=== PATIENT | female | born 1965 | race Caucasian/White ===

== ENCOUNTER 2018-04-05 20:26 | Emergency (ER) | payer SELFPAY ==
[2018-04-05 20:27] VITALS: BP 117/97; PULSE 79; RESP 21; TEMP 36.6; O2SAT 100; BMI 27.4
--- NOTE | 2018-04-05 20:31 | EKG12_ITS ---
Test Reason : CP Blood Pressure : / mmHG Vent. Rate : 074 BPM Atrial Rate : 074 BPM P-R Int : 142 ms QRS Dur : 092 ms QT Int : 398 ms P-R-T Axes : 019 034 000 degrees QTc Int : 441 ms Normal sinus rhythm Nonspecific T wave abnormality Abnormal ECG Confirmed by MOSES WOODS, GAIL ([id number]), metropolitan editor FABRIZIO SANTIAGO ([id number]) on 04/07/2018 3:54:00 PM Referred By: DIPTI Confirmed By:GAIL LOPES MD
[2018-04-05 20:57] LABS: Absolute Lymphocyte Count 0.76 X10^3/ul (0.83-4.51); Absolute Neutrophil Count 5.7 X10^3/uL (2.0-7.7); Basophil# 0.01 X10^3/uL; Basophil% 0.1 % (0-1); Eosinophil# 0.02 X10^3/uL; Eosinophils% 0.3 % (0-5); Hematocrit 47.3 % (37-47); Hemoglobin 15.7 g/dl (12.0-15.0); Lymphocyte # 0.76 X10^3/ul (4.0); Lymphocyte % 11.3 % (19-41); Mean Corp Hgb Conc 33.2 g/gl (32-36); Mean Corpuscular Volume 90.4 fL (81-99); Mean Platelet Vol. 10.6 fl (6.2-12.0); Monocyte# 0.26 X10^3/uL; Monocyte% 3.9 % (0-10); Neutrophil # 5.66 X10^3/uL (2.7-7.7); Neutrophil % 84.3 % (47-70); Platelet Count 229 K/mm3 (150-450); RBC Distribution Width CV 12.7 % (11.6-14.6); RBC Distribution Width SD 41.8 fl (35.1-43.9); Red Blood Count 5.23 M/mm3 (4.2-5.4); White Blood Count 6.7 K/mm3 (4.4-11.0)
[2018-04-05 20:58] LABS: POSITIVE COUNT NO; POSITIVE DIFFERENTIAL NO; POSITIVE MORPHOLOGY NO
--- NOTE | 2018-04-05 21:00 | RAD_ITS ---
STUDY: X-RAY CHEST REASON FOR EXAM: Female, 53 years old. Chest pain TECHNIQUE: Single AP portable view of the chest. COMPARISON: None. FINDINGS: There is right lower lung increased opacity. There is no demonstrated pleural abnormality. Normal size heart. Normal mediastinum and carolyn. Normal visualized pulmonary arteries. Normal visualized aortic arch and descending thoracic aorta. Normal visualized thoracic spine. Normal visualized ribs, clavicles, and shoulders. There is no demonstrated abnormality of the visualized soft tissue structures of the upper abdomen. RAD/Chest 1 View (Portable) IMPRESSION: Right lower lung infiltrate. Electronically Signed: Theodore Askew MD at 21:17 EST , Service support ,
[2018-04-05 21:02] LABS: International Normalized Ratio 0.9; Prothrombin Time (Protime)PT. 12.1 SECONDS (11.7-14.9)
[2018-04-05 21:09] LABS: Anion Gap 10 (5-15); BUN 16 mg/dL (7-18); BUN/Creat Ratio 15.2 RATIO (10-20); Calcium,Total 9.1 mg/dL (8.5-10.1); Chloride 104 mmol/L (98-107); Creatinine, Serum 1.05 mg/dL (0.55-1.02); EST Glomerular Filtration Rate 59 mL/min (>60); Est Glom Filt Rate - Afr Amer 71 mL/min (>60); Estimated Creatinine Clearance 50.13 ml/min; Glucose 106 mg/dL (74-106); Potassium 3.6 mmol/L (3.5-5.1); Sodium Level 136 mmol/L (136-145)
[2018-04-05 21:26] VITALS: BP 118/90; PULSE 64; RESP 13; O2SAT 100
[2018-04-05] MEDS: Mag Hydrox/Al Hydrox/Simeth 30 ML UDC PO (21:47)
[2018-04-05] MEDS: 0.9% Normal Saline 1,000 ML 999 ML IV (22:06)
[2018-04-05] MEDS: Ondansetron 4 MG/2 ML Vial IV (22:06)
[2018-04-05 22:08] VITALS: BP 122/84; PULSE 62; RESP 16; O2SAT 98
[2018-04-05] MEDS: Dicyclomine 10 MG Capsule 20 MG PO (23:14)
--- NOTE | 2018-04-06 00:21 | ED.DCSUM_ITS ---
- ER Visit Summary Date of Service: 04/06/18 Chief Complaint: Chest pressure, tightness bloating sensation with diaphoresis, shortness of breath and radiation of pain to the scapula History of Present Illness: The patient is a 53 F who apparently had [place] food according to the 2 hours prior to the onset of her symptoms. She states she also has had panic attacks and concerned this was a panic attack and took Ativan. Since there was no improvement after 2030 minutes she decided to come to the emergency department. She did have 2 loose stools prior to arrival. She has had diarrhea during her stay in the emergency department. She denies fever, chills night sweats. Denies visual, ocular auditory symptoms. She denies cough, dyspnea on exertion, orthopnea or PND. She denies black or maroon stool. She denies hematemesis. She has no urologic symptoms. She denies skin lesions. She complains of generalized weakness. Patient did report perioral numbness, tingling in upper and lower extremities when she experienced the chest discomfort with diaphoresis and shortness of breath. She does report history of anxiety and took Ativan as aforementioned. came out after examination states she appears to be chilling. Physical Examination: Vital signs noted and unremarkable. She appears slightly pale. Head is atraumatic normocephalic. Pupils are equal round reactive. Extraocular muscles are intact. TMs are pearly white with landmarks noted. Nares patent with no drainage. Posterior pharynx without erythema or exudate. Uvula is midline. There is no dysphonia or dysphasia. Trachea is midline. There is no stridor with auscultation of the neck. Heart is regular without murmur, gallop or rub. S1 and S2 are normal. Lungs are clear to auscultation with good movement of air bilaterally. There is no reproducible chest pain. There is significant pain in the epigastric area. Negative Javier sign. She is status post cholecystectomy, appendectomy and hysterectomy. She has increased bowel sounds. There are no lesions or rash noted. Is no evidence of trauma. She is alert and oriented with a nonfocal neurologic exam. Test Results: CBC is unremarkable. H&H of 15.7 and 47.3. Basic metabolic panel is unremarkable. Creatinine is slightly elevated 1.05. Troponin #1 troponin #2 are both normal with a delta of 0. EKG normal sinus rhythm with artifact and there are no old ossific changes. OR interval, QRS duration and QT interval and axis are normal. Emergency Department Course and Treatment: Patient was given a GI cocktail because of epigastric pain. Because of the cramping pain and diarrhea she was treated with 20 minutes of Bentyl. I was informed at 0020 that she had return of her nausea. 5 mg of Reglan was ordered. Treatment Plan: Patient's GI mid chest pain and a likely is related to her nausea vomiting diarrhea. This may be secondary to the food she ate. Patient was reassessed at 0026. She reports feeling better. Since pharmacies are closed will dispense Bentyl to go home with and Zofran. Disposition: Discharged home in stable improved condition Impression: 1. Chest pain noncardiac etiology 2. Abdominal pain with nausea and diarrhea 3. Anxiety reaction with hyperventilation This note was generated with [employer] dictation software. It may contain incorrect words, spelling, and punctuation that were not noted in review of the chart prior to signing ED Disposition - Plan for ED Patient: Disposition: Home or Assisted Living Instructions: ED Chest Pain Noncardiac Ch, ED Vomiting Diarrhea Nonspecific Ad Referrals: Estevan Geller III, MD [Primary Care Provider] - 1-2 Days if not improving
[2018-04-06] MEDS: Metoclopramide 10 MG/2 ML Vial 5 MG IV (00:39)
[2018-04-06] MEDS: Dicyclomine 10 MG Capsule PO (00:39)
[2018-04-06] MEDS: Ondansetron ODT 4 MG Tablet PO (00:40)
[2018-04-06 00:43] VITALS: BP 114/67; PULSE 71; RESP 16; O2SAT 97
== END 2018-04-06 00:46 | disposition home or self-care (01) ==
PROVIDERS: Emergency Provider Emergency Medicine; Family Provider Family Medicine; PCP Family Medicine
DX: R07.9 Chest pain, unspecified (principal); R10.13 Epigastric pain; R11.0 Nausea; R19.7 Diarrhea, unspecified; F41.1 Generalized anxiety disorder; R06.4 Hyperventilation; Z79.899 Other long term (current) drug therapy; E66.9 Obesity, unspecified
CPT/HCPCS: 71045; 80048; 84484; 85025; 85610; 93005; 96361; 96374; 96375; 99284; J7030; A4216; J2405

== ENCOUNTER 2020-02-13 19:34 | Emergency (ER) | payer SELFPAY ==
[2020-02-13 19:34] VITALS: BP 149/98; PULSE 58; RESP 16; TEMP 36.8; O2SAT 97; BMI 38.4
--- NOTE | 2020-02-13 19:43 | ED.RN ---
rn called for ekg, pulled old ekgs for
--- NOTE | 2020-02-13 20:08 | EKG12_ITS ---
Test Reason : CP Blood Pressure : / mmHG Vent. Rate : 054 BPM Atrial Rate : 054 BPM P-R Int : 158 ms QRS Dur : 104 ms QT Int : 446 ms P-R-T Axes : 017 -18 054 degrees QTc Int : 422 ms Sinus bradycardia Left ventricular hypertrophy with repolarization abnormality Abnormal ECG Confirmed by GEORGINA WOODS, CHRIS ([id number]), editorial cartoonist KEVIN ANGLIN ([id number]) on 02/16/2020 8:31:39 AM Referred By: SHARON Confirmed By:CHRIS ERICKSON MD
--- NOTE | 2020-02-13 20:09 | RAD_ITS ---
STUDY: X-RAY CHEST REASON FOR EXAM: Female, 55 years old. CHEST and HEAVINESS and LEFT ARM PAIN RADIATING TO BACK. TECHNIQUE: Single frontal view of the chest. COMPARISON: 04/05/2018. FINDINGS: There is no new focal consolidation. Normal size heart. Normal mediastinum and carolyn. Normal visualized pulmonary arteries. Normal visualized aortic arch and descending thoracic aorta. Normal visualized thoracic spine. Normal visualized ribs, clavicles, and shoulders. There is no demonstrated abnormality of the visualized soft tissue structures of the upper abdomen. RAD/Chest 1 View (Portable) IMPRESSION: No acute cardiopulmonary process. Electronically Signed: Alisa Mckeon MD at 20:59 EST Tel , Service support ,
[2020-02-13 20:25] VITALS: BP 125/96; PULSE 59
[2020-02-13] MEDS: Nitroglycerin SL (ED/IMG/CATH) 0.4 MG TABLET SUBLINGUAL (20:25)
[2020-02-13 20:33] LABS: Absolute Neutrophil Count 3.9 X10^3/uL (2.0-7.7); Basophil# 0.04 X10^3/uL; Basophil% 0.7 % (0-1); Eosinophil# 0.09 X10^3/uL; Eosinophils% 1.5 % (0-5); Hematocrit 42.2 % (37-47); Hemoglobin 13.8 g/dL (12.0-15.0); Lymphocyte % 29.4 % (19-41); Mean Corp Hgb Conc 32.7 g/dL (32-36); Mean Corpuscular Hgb 29.2 pg (27.0-32.0); Mean Corpuscular Volume 89.4 fL (81-99); Mean Platelet Vol. 10.9 fl (6.2-12.0); Monocyte% 4.9 % (0-10); NRBC Flagged by Analyzer 0 % (0-5); Neutrophil # 3.88 X10^3/uL (2.7-7.7); Neutrophil % 63.2 % (47-70); Platelet Count 244 K/mm3 (150-450); RBC Distribution Width SD 39.5 fl (35.1-43.9); Red Blood Count 4.72 M/mm3 (4.2-5.4); White Blood Count 6.1 K/mm3 (4.4-11.0)
[2020-02-13 20:40] LABS: D-Dimer Quantitative (DVT/PE) 0.37 FEU/ug/m (0.27-0.49)
[2020-02-13 20:48] LABS: Anion Gap 7 (5-15); BUN 15 mg/dL (7-18); BUN/Creat Ratio 13.9 RATIO (10-20); Calcium,Total 8.9 mg/dL (8.5-10.1); Chloride 108 mmol/L (98-107); Creatinine, Serum 1.08 mg/dL (0.55-1.02); EST Glomerular Filtration Rate 56 mL/min (>60); Est Glom Filt Rate - Afr Amer 68 mL/min (>60); Estimated Creatinine Clearance 47.65 ml/min; Glucose 151 mg/dL (74-106); Potassium 3.5 mmol/L (3.5-5.1); Sodium Level 142 mmol/L (136-145)
--- NOTE | 2020-02-13 21:07 | ED.DCSUM_ITS ---
History of Present Illness Chief Complaint: Chest Pain Informant: Patient Narrative: Very pleasant 55-year-old female presents for evaluation of chest pain. At approximately 5:00 [employer] she began to have pain going up her left arm into the left scapular region. She then felt a sensation like a 6-year-old was sitting on her chest. She states that the arm is better but the heaviness still remains. She states she had a stress test in the past that was probably greater than 10 years ago. Non-smoker. No history of hypertension high cholesterol. BMI is 38. History of known vascular disease. Past Medical History - Allergies and Home Meds Allergies/Adverse Reactions: Allergies azithromycin [From Zithromax] Allergy (Verified 02/13/20 19:36) Unknown meperidine HCl [From Demerol] Allergy (Verified 02/13/20 19:36) Unknown prochlorperazine edisylate [From Compazine] Allergy (Verified 02/13/20 19:36) Unknown prochlorperazine maleate [From Compazine] Allergy (Verified 02/13/20 19:36) Unknown rizatriptan benzoate [From Maxalt] Allergy (Verified 02/13/20 19:36) Unknown Primary Care Physician: Estevan Geller III, MD [Primary Care Provider] - As soon as possible (please discuss cardiac stress testing with your doctor) Past Medical History: None Surgical History: noncontributory Lives: Spouse/ Significant Other Smoking Status: Never smoker Drugs: None Review of Systems General: Denies: Chills, Fever, Sweats Eyes: Denies: Visual changes - bilaterally, Diplopia ENT: Denies: Rhinorrhea, Sore throat Cardiovascular: Reports: Chest pain. Denies: Palpitations Respiratory: Denies: Dyspnea, Cough, Dyspnea on exertion Gastrointestinal: Denies: Abdominal pain, Nausea, Vomiting, Diarrhea, Melena, Hematochezia Genitourinary: Denies: Dysuria, Hematuria, Frequency Musculoskeletal: Reports: Extremity Pain. Denies: Back pain Skin: Denies: Rash, Wounds Neurological: Denies: Headache, Weakness, Numbness Physical Exam Vital Signs/Narrative: Vital Signs Temp Pulse Resp BP Pulse Ox 02/13/20 20:25 59 L 125/96 H 02/13/20 19:34 98.2 F 58 L 16 149/98 H 97 Inital Vital Signs reviewed: Yes General: Well nourished, Well developed, No Acute Distress Head: Normocephalic, Atraumatic Eyes: Perrl, EOMI ENT: Moist mucous membranes, No rhinorrhea Neck: Supple, Nontender Cardiovascular: Regular rate, Regular rhythm, No murmurs Respiratory: No distress, CTA bilaterally, Chest nontender Abdomen: Soft, Nontender, Nondistended, Normal bowel sounds Back: Nontender, Normal Inspection Extremities: Nontender, No edema Skin: Normal color, No rash Neurological: Alert, Oriented x3, Cranial nerves II-XII grossly intact, Normal Strength, Normal Sensation Psychological: Normal affect, Normal Mood Diagnostic/Tx/Re-eval Clinical Impression(s) from Imaging Studies Chest X-Ray 02/13/20 20:09 IMPRESSION: No acute cardiopulmonary process. Electronically Signed: Alisa Mckeon MD at 20:59 EST Tel , Service support , Laboratory Last Values WBC 6.1 K/mm3 (4.4-11.0) 02/13/20 19:47 RBC 4.72 M/mm3 (4.2-5.4) 02/13/20 19:47 Hgb 13.8 g/dL (12.0-15.0) 02/13/20 19:47 Hct 42.2 % (37-47) 02/13/20 19:47 MCV 89.4 fL (81-99) 02/13/20 19:47 MCH 29.2 pg (27.0-32.0) 02/13/20 19:47 MCHC 32.7 g/dL (32-36) 02/13/20 19:47 RDW Std Deviation 39.5 fl (35.1-43.9) 02/13/20 19:47 RDW Coeff of Scooter 12.0 % (11.6-14.6) 02/13/20 19:47 Plt Count 244 K/mm3 (150-450) 02/13/20 19:47 MPV 10.9 fl (6.2-12.0) 02/13/20 19:47 Immature Gran % (Auto) 0.300 % (0.0-0.9) 02/13/20 19:47 Neut % (Auto) 63.2 % (47-70) 02/13/20 19:47 Lymph % (Auto) 29.4 % (19-41) 02/13/20 19:47 [place] % (Auto) 4.9 % (0-10) 02/13/20 19:47 Eos % (Auto) 1.5 % (0-5) 02/13/20 19:47 Baso % (Auto) 0.7 % (0-1) 02/13/20 19:47 Absolute Neuts (auto) 3.9 X10^3/uL (2.0-7.7) 02/13/20 19:47 Absolute Lymphs (auto) 1.80 X10^3/uL (0.83-4.51) 02/13/20 19:47 Nucleated RBC % 0 % (0-5) 02/13/20 19:47 D-Dimer Quant (PE/DVT) 0.37 FEU/ug/m (0.27-0.49) 02/13/20 19:47 Sodium 142 mmol/L (136-145) 02/13/20 19:47 Potassium 3.5 mmol/L (3.5-5.1) 02/13/20 19:47 Chloride 108 mmol/L (98-107) H 02/13/20 19:47 Carbon Dioxide 27.0 mmol/L (21.0-32.0) 02/13/20 19:47 Anion Gap 7 (5-15) 02/13/20 19:47 BUN 15 mg/dL (7-18) 02/13/20 19:47 Creatinine 1.08 mg/dL (0.55-1.02) H 02/13/20 19:47 Estim Creat Clear Calc 47.65 ml/min 02/13/20 19:47 Est GFR (MDRD) Af Amer 68 mL/min (>60) 02/13/20 19:47 Est GFR (MDRD) Non-Af 56 mL/min (>60) L 02/13/20 19:47 BUN/Creatinine Ratio 13.9 RATIO (10-20) 02/13/20 19:47 Glucose 151 mg/dL (74-106) H 02/13/20 19:47 Calcium 8.9 mg/dL (8.5-10.1) 02/13/20 19:47 Troponin I < 0.015 ng/mL (<0.045) 02/13/20 19:47 - EKG Initial EKG Interpretation: Sinus Rhythm - EKG demonstrates a sinus bradycardia at a rate of 54. This appears grossly unchanged from EKG dated 14 April 2006 - Medical Decision Making Based on her heart score (3 points) the patient is low risk. Initial troponin is negative. Patient does not wish to stay for second troponin. She is otherwise asymptomatic at the current time. Patient will be discharged home with instructions to follow-up with her primary care physician to discuss further cardiac stress testing. ED Disposition - Plan for ED Patient: Disposition: Home or Assisted Living Diagnosis: Chest pain Instructions: ED Chest Pain, Uncertain Cause Referrals: Estevan Geller III, MD [Primary Care Provider] - As soon as possible (please discuss cardiac stress testing with your doctor) Additional Instructions: Please return if any concerns or worsening
[2020-02-13 21:19] VITALS: BP 112/65; PULSE 61; RESP 16; O2SAT 98
== END 2020-02-13 21:19 | disposition home or self-care (01) ==
PROVIDERS: Emergency Provider Emergency Medicine; PCP Family Medicine
DX: R07.9 Chest pain, unspecified (principal)
CPT/HCPCS: 71045; 80048; 84484; 85025; 85379; 93005; 99284; A4216

== ENCOUNTER 2020-10-11 06:29 | Day surgery (SDC) | payer SELFPAY ==
--- NOTE | 2020-10-11 06:36 | HP.PCM_ITS ---
HPI - General HPI Narrative SAMANTHA BEAVERS, is a 55 F who presents for colonoscopy. Patient says that her last colonoscopy was 10 years ago. She denies any abdominal pain or blood in her stool. She says she does have a half brother who had colon cancer in his 40s. [facility] Medical History (Updated 10/11/20 @ 06:[address] Aaron Arnold MD) Alcohol use Anxiety Back pain Depression Former smoker History of IBS History of rheumatic fever History of stress test Injury of head and neck Leg cramps Wears glasses Home Medications citalopram 20 mg PO DAILY 03/27/13 [History Last Taken 01/11/17] phentermine 37.5 mg PO DAILY 10/04/20 [History Last Taken Unknown] Allergy/AdvReac Type Severity Reaction Status Date / Time azithromycin [From Zithromax] Allergy Unknown Verified 10/04/20 12:49 meperidine HCl [From Demerol] Allergy Unknown Verified 10/04/20 12:49 prochlorperazine edisylate Allergy Unknown Verified 10/04/20 12:49 [From Compazine] prochlorperazine maleate Allergy Unknown Verified 10/04/20 12:49 [From Compazine] rizatriptan benzoate Allergy Unknown Verified 10/04/20 12:49 [From Maxalt] Surgical History (Updated 10/04/20 @ 12:57 by Veronica Green) History of cardiac catheterization Hx laparoscopic cholecystectomy Hx of appendectomy Hx of colonoscopy Hx of hernia repair Hx of hysterectomy, total Hx of tonsillectomy Social History Smoking Status: Former smoker Past Medical/Surgical History Planned Operation Planned Operative Procedure/s: COLONOSCOPY Previous Hospitalizations/Surgeries HX Hospitalizations: No Any Problems With Anesthesia: No You/Your Family Experience Fever (Hyperthermia) With Anes: No Cholinesterase deficiency: No Cardiovascular Hx Heart Attack: No Hx Congestive Heart Failure: No Hx Hypertension: No Hx Internal Defibrillator: No Hx Pacemaker: No Hx Cardiac Catheterization: Yes (as a child) What facility was last heart cath performed: [facility] Date of last Heart Cath: unk Respiratory Hx Chronic Obstructive Pulmonary Disease (COPD): No Hx Asthma: Yes (FROM BLACK MOLD) Hx Emphysema: No Hx Sleep Apnea: No Hx Respiratory Tract Infection/Cold (presently): No Do You Snore Loudly (louder than talking or can be heard): No Do You Often Feel Tired/ Fatigued/ Sleepy Dring Daytime?: No Has Anyone Observed You Stop Breathing During Sleep?: No Result (for STOP score): Negative Smoking Status: Former smoker Gastrointestinal Special diet followed at home: Yes Neurological Hx Seizures: No Hx Transient Ischemic Attacks (TIA): No Hx Back Injury/Pain: No Does patient have nerve stimulator: No Blood Disorder Hx High Cholesterol: Yes Hx Hepatitis: No Hx Cirrhosis: No Endocrine Hx Diabetes: No Psycho/Social Hx Substance Use: No Hx Alcohol Use: No Hx Anxiety: Yes Hx Depression: No Hx Dementia: No Miscellaneous Hx Cancer: No Allergies azithromycin [From Zithromax] Allergy (Verified 10/04/20 12:49) Unknown meperidine HCl [From Demerol] Allergy (Verified 10/04/20 12:49) Unknown prochlorperazine edisylate [From Compazine] Allergy (Verified 10/04/20 12:49) Unknown prochlorperazine maleate [From Compazine] Allergy (Verified 10/04/20 12:49) Unknown rizatriptan benzoate [From Maxalt] Allergy (Verified 10/04/20 12:49) Unknown Discharge Is Pt Admitted From a Detention, or a [facility]: No After D/C, Where Do you Plan to Go: Return Home Vital Signs Vital Signs Vital Signs: Weight Body Mass Index (BMI) 38.4 Physical Exam Const alert and oriented x3 Resp normal respiratory effort and normal air movement Cardio regular rate and regular rhythm GI soft to palpation, non-tender and non-distended Assessment & Plan Assessment/Plan (1) Screen for colon cancer: PLAN: The patient is here for screening colonoscopy. She does have a half brother with a history of colon cancer in his 40s and I do recommend that she have a colonoscopy every 5 years. I explained endoscopy in detail to the patient. I explained the risks including but not limited to stroke or heart attack with anesthesia, perforation of the GI tract, bleeding, infection. I explained that any of these could necessitate further emergency surgery. The patient understands and all questions were answered sufficiently. The patient wishes to proceed with procedure. Aaron Arnold MD Pager: [facility] [address] [place] [address], [address] [place] [address] Office: Surgery Risks - Colonoscopy Risks Include but are not Limited To: Risks include but are not limited to: Bleeding, perforation requiring further surgery, inability to complete colonoscopy requiring barium enema.
[2020-10-11 06:51] VITALS: BP 114/83; PULSE 77; RESP 16; TEMP 36.4; O2SAT 100; BMI 31.4
[2020-10-11] MEDS: Lactated Ringers 1,000 ML 100 ML IV (07:11)
[2020-10-11 07:55] VITALS: BP 101/71; BP 114/83; PULSE 74; RESP 16; O2SAT 97
[2020-10-11 07:57] VITALS: BP 101/69; BP 114/83; PULSE 69; RESP 14; TEMP 36.4; O2SAT 100
--- NOTE | 2020-10-11 08:02 | OP.CCLET_ITS ---
10/11/2020 Rima Sierra [place] [id number] [place] [address] Re : Colonoscopy procedure for Miriam Sprague Dear Dr. Sierra This procedure was performed on Sunday, October 11, 2020. My impressions and recommendations are as follows: Impressions : - The entire examined colon is normal on direct and retroflexion views. - No specimens collected. Recommendations : - Discharge patient to home. - Resume previous diet. - Continue present medications. - Repeat colonoscopy in 5 years for surveillance. My findings are described in the full procedure note, which is enclosed. If I can be of further assistance, please feel free to contact me at Doctor phone number(s): , Work: . Sincerely, Aaron Arnold MD 10/11/2020 8:01:17 AM This report has been signed electronically.
--- NOTE | 2020-10-11 08:02 | OP.COLON_ITS ---
Patient Name: Miriam Sprague Procedure Date: 10/11/2020 7:03 AM Date of : 1965 Age: 55 Procedure: Colonoscopy Indications: Screening for colorectal malignant neoplasm Providers: Aaron Arnold MD Referring MD: Rima Sierra Medicines: Monitored Anesthesia Care Patient Profile: This is a 55 year old female. Refer to note in patient chart for documentation of history and physical. Last Colonoscopy: 10 years ago. Complications: No immediate complications. Procedure: Pre-Anesthesia Assessment: - Prior to the procedure, a History and Physical was performed, and patient medications and allergies were reviewed. The patient's tolerance of previous anesthesia was also reviewed. The risks and benefits of the procedure and the sedation options and risks were discussed with the patient. All questions were answered, and informed consent was obtained. Prior Anticoagulants: The patient has taken no previous anticoagulant or antiplatelet agents. After reviewing the risks and benefits, the patient was deemed in satisfactory condition to undergo the procedure. After I obtained informed consent, the scope was passed under direct vision. Throughout the procedure, the patient's blood pressure, pulse, and oxygen saturations were monitored continuously. The colonoscope was introduced through the anus and advanced to the cecum, identified by appendiceal orifice and ileocecal valve. The colonoscopy was performed without difficulty. The patient tolerated the procedure well. The quality of the bowel preparation was good. Scope In: 7:41:25 AM Scope Withdrawal Time 0 hours 6 minutes 2 seconds Scope Out: 7:52:03 AM Total Procedure Duration Time 0 hours 10 minutes 38 seconds Findings: The entire examined colon appeared normal on direct and retroflexion views. Impression: - The entire examined colon is normal on direct and retroflexion views. - No specimens collected. Recommendation: - Discharge patient to home. - Resume previous diet. - Continue present medications. - Repeat colonoscopy in 5 years for surveillance. Procedure Code(s): --- Professional --- 15594, Colonoscopy, flexible; diagnostic, including collection of specimen(s) by brushing or washing, when performed (separate procedure) Diagnosis Code(s): --- Professional --- Z12.11, Encounter for screening for malignant neoplasm of colon CPT copyright 2017 [employer]. All rights reserved. The codes documented in this report are preliminary and upon forestry patrolman review may be revised to meet current compliance requirements. Aaron Arnold MD 10/11/2020 8:01:17 AM This report has been signed electronically. Number of Addenda: 0 Note Initiated On: 10/11/2020 7:03 AM
[2020-10-11 08:05] VITALS: BP 105/80; BP 114/83; PULSE 75; RESP 16; O2SAT 98
[2020-10-11 08:11] VITALS: BP 104/76; BP 114/83; PULSE 78; RESP 16; TEMP 36.3; O2SAT 100
[2020-10-11 08:40] VITALS: BP 114/83
== END 2020-10-11 08:41 | disposition home or self-care (01) ==
LOC: EN 06:30 → AC 06:30
PROVIDERS: PCP Family Medicine; Referring Provider Family Medicine; Visit Provider Surgery
PROC: 0DJD8ZZ Inspection of Lower Intestinal Tract, Via Natural or Artificial Opening Endoscopic (ICD-10-PCS; CPT 45378; principal; 2020-10-11 07:25)
DX: Z12.11 Encounter for screening for malignant neoplasm of colon (principal); F41.9 Anxiety disorder, unspecified; F32.9 Major depressive disorder, single episode, unspecified; Z87.891 Personal history of nicotine dependence; Z79.899 Other long term (current) drug therapy
CPT/HCPCS: 45378; 87426; C9803; J7120; J2405

== ENCOUNTER → 2022-05-01 | Outpatient (CLI) | payer SELFPAY ==
[2022-05-01 18:08] LABS: CRP 2.91 mg/L (0.0-3.0)
[2022-05-01 19:49] LABS: Erythrocyte Sedimentation Rate 12 mm/hr (0-30)
[2022-05-04 12:01] LABS: CCP IgG Antibodies 1 units (0-19)
[2022-05-04 14:32] LABS: ANTINUCLEAR ANTIBODIES DIRECT Negative (Negative)
== END | disposition home or self-care (01) ==
LOC: BFHLAB 14:12
PROVIDERS: PCP Family Medicine; Visit Provider Family Medicine
DX: M25.50 Pain in unspecified joint (principal)
CPT/HCPCS: 36415; 85652; 86038; 86140; 86200

== ENCOUNTER → 2023-08-05 | Outpatient (CLI) | payer SELFPAY ==
[2023-08-05 12:35] LABS: Absolute Lymphocyte Count 2.02 X10^3/uL (0.83-4.51); Absolute Neutrophil Count 3.3 X10^3/uL (2.0-7.7); Basophil# 0.06 X10^3/uL; Eosinophil# 0.07 X10^3/uL; Eosinophils% 1.2 % (0-5); Hematocrit 43.9 % (37-47); Hemoglobin 13.8 g/dL (12.0-15.0); Lymphocyte # 2.02 X10^3/ul (0.83-4.51); Mean Corp Hgb Conc 31.4 g/dL (32-36); Mean Corpuscular Hgb 28.6 pg (27.0-32.0); Mean Corpuscular Volume 91.1 fL (81-99); Mean Platelet Vol. 11.3 fl (6.2-12.0); Monocyte# 0.31 X10^3/uL; Monocyte% 5.4 % (0-10); NRBC Flagged by Analyzer 0 % (0-5); Neutrophil # 3.29 X10^3/uL (2.7-7.7); Neutrophil % 57.1 % (47-70); Platelet Count 214 K/mm3 (150-450); RBC Distribution Width CV 12.7 % (11.6-14.6); Red Blood Count 4.82 M/mm3 (4.2-5.4); White Blood Count 5.8 K/mm3 (4.4-11.0)
[2023-08-05 13:12] LABS: ALB/GLOB Ratio 0.9 RATIO (0.9-2.4); AST(SGOT) 18 U/L (15-37); Alanine Aminotransfer ALT/SGPT 18 U/L (13-56); Albumin, Serum 3.7 g/dL (3.2-5.0); Alkaline Phosphatase 59 U/L (45-117); Anion Gap 7 (5-15); BUN 15 mg/dL (7-18); BUN/Creat Ratio 16.6 RATIO (10-20); Calcium,Total 9.1 mg/dL (8.5-10.1); Chloride 109 mmol/L (98-107); EST Glomerular Filtration Rate 69 mL/min (>60); Est Glom Filt Rate - Afr Amer 83 mL/min (>60); Glucose 90 mg/dL (74-106); Potassium 4.5 mmol/L (3.5-5.1); Protein, Total 7.7 g/dL (6.4-8.2); Sodium Level 142 mmol/L (136-145); Thyroid Stim Hormone (TSH) 1.93 uIU/mL (0.358-3.74)
== END | disposition home or self-care (01) ==
PROVIDERS: PCP Family Medicine; Referring Provider Family Medicine; Visit Provider Family Medicine
DX: N95.2 Postmenopausal atrophic vaginitis (principal); E03.9 Hypothyroidism, unspecified
CPT/HCPCS: 36415; 80053; 84443; 85025

== ENCOUNTER → 2023-08-13 | Outpatient (CLI) | payer SELFPAY ==
--- NOTE | 2023-08-13 13:40 | BI_ITS ---
MAMMOGRAPHY - BILATERAL SCREENING 3-D TOMOSYNTHESIS REASON FOR EXAM: Female, 58 years old. SCREENING PERTINENT HISTORY: No significant family history. TECHNIQUE: 2-D mammograms and 3-D Tomosynthesis of the breast (s) were performed. CAD was performed. COMPARISON: 08/09/2020 FINDINGS: The breast composition is composed of scattered fibroglandular density. Scattered benign calcifications are seen. No dense spiculated masses or suspicious microcalcifications are identified. No architectural distortion is identified. There is no skin thickening or retraction. There has been no significant change since the prior study. BI/SCRN MAMM (CAD)W/ELAINE BILAT IMPRESSION: No mammographic signs of malignancy. Routine yearly mammograms recommended. ASSESSMENT CATEGORY: BIRADS Category 1: Negative. A letter regarding these results will be sent to the patient by the facility within 30 days. FOLLOW UP RECOMMENDATION: Yearly follow up mammogram recommended. (A) Approximately 10% of breast cancers are not detected by mammography. A normal mammogram should not delay biopsy of a clinically suspicious abnormality. Electronically Signed: Bacilio Aldridge MD at 16:16 EDT ,
== END | disposition home or self-care (01) ==
PROVIDERS: PCP Family Medicine; Referring Provider Family Medicine; Visit Provider Family Medicine
DX: Z12.31 Encounter for screening mammogram for malignant neoplasm of breast (principal)
CPT/HCPCS: 77063; 77067

== ENCOUNTER 2024-12-23 19:22 | Emergency (ER) | payer OTHER, SELFPAY ==
[2024-12-23 19:22] VITALS: BP 125/108; PULSE 61; RESP 12; TEMP 36.8; O2SAT 100; BMI 30.1
--- NOTE | 2024-12-23 20:15 | CT_ITS ---
PROCEDURE: ABDOMEN/PELVIS W IV CONT ONLY 12/23/2024 REASON FOR EXAM: ABDOMINAL PAIN TECHNIQUE: Procedure Code: [id number] Modality: CT Procedure: ABDOMEN/PELVIS W IV CONT ONLY Coronal and Sagittal reconstruction series were provided. CONTRAST: 100 cc of Isovue 370 One or more dose reduction techniques were used (e.g., Automated exposure control, adjustment of the mA and/or kV according to patient size, use of iterative reconstruction technique. COMPARISON: None available. FINDINGS: Lung bases: Unremarkable. Liver: Normal size. No mass. Gallbladder: Cholecystectomy with associated prominence of the common bile duct and intrahepatic bile ducts. Spleen: Normal size. Pancreas: Normal size without evidence of mass surrounding inflammation or ductal dilation. Adrenals: No adrenal masses. Kidneys: Normal renal sizes. No hydronephrosis. Bladder: Unremarkable. Reproductive Organs: Prior hysterectomy. Adnexal regions are unremarkable. Bowel: No bowel obstruction. Appendix: The appendix is not identified. There is no inflammatory process identified in the right lower quadrant to suggest appendicitis. Lymph nodes: Unremarkable. Vasculature: The abdominal aorta and IVC are normal. Peritoneum / Retroperitoneum: No free fluid or air. Bones: Unremarkable. No acute fractures. CT/Abdomen/Pelvis W IV Cont ONLY IMPRESSION: NO ACUTE FINDINGS AT THE ABDOMEN OR PELVIS ON CONTRAST-ENHANCED CT. Reading Location: [facility]
--- NOTE | 2024-12-23 20:16 | ED.VIS.GI ---
HPI <Dr. Gene Hammond DO - Last Filed: 12/24/24 00:59> HPI - GI History of Present Illness Chief Complaint: Abd Pain Abdominal Pain/Flank Pain Onset: Yesterday Context: Gradual Onset Timing: Continuous Quality: Aching Location: Epigastric Worsened by: Food Relieved by: Nothing Nausea/Vomiting/Emesis GI Symptom: Positive for Nausea; Negative for Vomiting Diarrhea/Melena/Hematochezia GI Symptom: Negative for Diarrhea, Melena or Hematochezia Associated Symptoms Associated Symptoms: Negative for Dysuria, Frequency or Hematuria Narrative Narrative: Patient presents with epigastric abdominal pain that began yesterday. Patient states that it has been constant. Patient states it came on gradually. Patient describes it as aching. Patient states it did get worse after eating. Patient admits to some nausea but denies any vomiting. Patient denies any diarrhea, melena, or hematochezia. Patient denies any dysuria, frequency, or hematuria. [facility] <Dr. Gene Hammond DO - Last Filed: 12/24/24 00:59> [facility] Medical History Wears glasses Depression Anxiety Alcohol use Back pain Injury of head and neck History of IBS Former smoker Leg cramps History of stress test History of rheumatic fever Home Medications Medication Instructions Recorded Last Taken Type citalopram 20 mg tablet 20 mg PO DAILY 03/27/13 01/11/17 History dicyclomine 20 mg tablet 20 mg PO Q6H PRN PRN abdominal 12/24/24 Unknown Rx discomfort #20 tabs metoclopramide HCl 10 mg tablet 10 mg PO Q8H PRN nausea and 12/24/24 Unknown Rx vomiting #20 tabs pantoprazole 40 mg tablet,delayed 40 mg PO DAILY #30 tabs 12/24/24 Unknown Rx release sulfamethoxazole 800 1 tab PO BID #6 TABLETS 12/24/24 Unknown Rx mg-trimethoprim 160 mg tablet Allergy/AdvReac Type Severity Reaction Status Date / Time azithromycin (From Zithromax) Allergy Unknown Verified 12/23/24 19:23 meperidine HCl (From Demerol) Allergy Unknown Verified 12/23/24 19:23 prochlorperazine edisylate Allergy Unknown Verified 12/23/24 19:23 (From Compazine) prochlorperazine maleate Allergy Unknown Verified 12/23/24 19:23 (From Compazine) rizatriptan benzoate (From Allergy Unknown Verified 12/23/24 19:23 [facility]) Surgical History Hx of colonoscopy Hx of hernia repair Hx of tonsillectomy Hx of hysterectomy, total Hx of appendectomy Hx laparoscopic cholecystectomy History of cardiac catheterization Social History Smoking Status: Former smoker ROS <Dr. Gene Hammond DO - Last Filed: 12/24/24 00:59> ROS ED Constitutional Constitutional ED: Denies chills or fever(s) Eyes Eyes: Denies blurry vision or change in vision ENT ENT ED: Denies rhinorrhea or sore throat Cardiovascular Cardiovascular: Denies chest pain or palpitations Respiratory/Chest Respiratory/Chest: Reports dyspnea; Denies cough Gastrointestinal Gastrointestinal: Reports abdominal pain and nausea; Denies vomiting Genitourinary Genitourinary ED: Denies dysuria or hematuria Musculoskeletal Musculoskeletal: Reports back pain; Denies neck pain Integumentary Denies abscess or rash Neurologic Neurologic: Denies headache(s) or weakness Allergic/Immunologic Allergic/Immunologic ED: Denies mouth swelling or urticaria EXAM <Dr. Gene Hammond, - Last Filed: 12/24/24 00:59> Physical Exam Const Vital Signs: 12/23/24 19:22 12/23/24 21:22 12/23/24 23:00 Temperature 98.2 F Temperature Source Oral Pulse Rate 61 60 64 Respiratory Rate 12 18 16 Blood Pressure 125/108 H 138/74 H 135/81 H Blood Pressure Mean 113 95 99 Pulse Ox 100 96 Oxygen Delivery Method Room Air Room Air 12/24/24 01:00 12/24/24 03:00 Temperature Temperature Source Pulse Rate 87 Respiratory Rate 18 16 Blood Pressure 133/62 H Blood Pressure Mean 85 Pulse Ox Oxygen Delivery Method Positive well nourished and well developed General Appearance ED: well developed and NAD HEENT Reports moist mucous membranes normocephalic and atraumatic Neck supple and no JVD Resp normal respiratory effort and clear to auscultation bilaterally Cardio regular rate and regular rhythm GI non-distended Palpation: soft and tender epigastric; Negative for guarding or rebound tenderness present Extremity General Extremety ED: Negative for edema or tenderness General Extremity: Negative for edema Neuro CN's II-XII intact bilaterally, moves all extremities and no sensory deficits noted Sensorium / Orientation: alert Motor Exam: strength 5/5 throughout Psych mental status grossly normal and thought process normal <Dr. Theodore Fishman MD - Last Filed: 12/24/24 04:48> Physical Exam Const Vital Signs: 12/23/24 19:22 12/23/24 21:22 12/23/24 23:00 Temperature 98.2 F Temperature Source Oral Pulse Rate 61 60 64 Respiratory Rate 12 18 16 Blood Pressure 125/108 H 138/74 H 135/81 H Blood Pressure Mean 113 95 99 Pulse Ox 100 96 Oxygen Delivery Method Room Air Room Air 12/24/24 01:00 12/24/24 03:00 Temperature Temperature Source Pulse Rate 87 Respiratory Rate 18 16 Blood Pressure 133/62 H Blood Pressure Mean 85 Pulse Ox Oxygen Delivery Method MDM <Dr. Gene Hammond DO - Last Filed: 12/24/24 00:59> MDM MDM Narrative Medical decision making narrative: Differential diagnosis includes pancreatitis, gastritis, choledocholithiasis, peptic ulcer disease, duodenal ulcer, urinary tract infection, dehydration, and electrolyte abnormality. CT scan of the abdomen and pelvis will be obtained to assess for bowel obstruction, perforation, pancreatitis, and choledocholithiasis. CBC will be obtained to assess for leukocytosis and anemia. Comprehensive metabolic profile will be obtained to assess for hepatic function, renal function, and electrolyte abnormality. Lipase will be obtained to assess for pancreatitis. Urinalysis will be obtained to assess for urinary tract infection and hematuria. History & Record Review Additional record(s) reviewed:: Prior outpatient record and Prior labs Lab Data Attestation: I reviewed the patient's lab results. Lab results narrative: CBC was reviewed and was within normal limits. Comprehensive metabolic profile was reviewed and was within normal limits. Lipase was reviewed and was normal at 53. Urinalysis was reviewed. Leukocyte esterase was 500. There are 25-50 white blood cells and 1+ bacteria. Labs: Laboratory Results - last 24 hr 12/23/24 12/23/24 19:48 19:53 WBC 6.0 RBC 4.82 Hgb 14.2 Hct 42.9 MCV 89.0 MCH 29.5 MCHC 33.1 RDW Std Deviation 41.1 RDW Coeff of Scooter 12.6 Plt Count 185 MPV 10.9 Immature Gran % (Auto) 0.200 Neut % (Auto) 56.5 Lymph % (Auto) 34.8 [place] % (Auto) 6.0 Eos % (Auto) 1.3 Baso % (Auto) 1.2 H Absolute Neuts (auto) 3.4 Absolute Lymphs (auto) 2.09 Nucleated RBC % 0 Sodium 141 Potassium 4.0 Chloride 107 Carbon Dioxide 22.8 Anion Gap 11 BUN 17 Creatinine 1.08 Estim Creat Clear Calc 54.40 Est GFR (MDRD) Non-Af 60 BUN/Creatinine Ratio 16.1 Glucose 95 Calcium 9.2 Total Bilirubin 0.34 AST 23 ALT 20 Alkaline Phosphatase 57 Total Protein 7.3 Albumin 4.1 Globulin 3.1 Albumin/Globulin Ratio 1.3 Lipase 53 Urine Color Yellow Urine Clarity Clear Urine pH 6.0 Ur Specific [place] 1.025 Urine Protein 30 H Urine Glucose (UA) Normal Urine Ketones 5 H Urine Occult Blood 25 H Urine Nitrite Negative Urine Bilirubin Negative Urine Urobilinogen Normal Ur Leukocyte Esterase 500 H Urine RBC 5-10 SEEN Urine WBC 25-50 SEEN Ur Squamous Epith Cells 0-5 SEEN Urine Bacteria 1+ Urine Mucus 0 SEEN Radiography Diagnostic Testing: Clinical Impression(s) from Imaging Studies Abdomen/Pelvis CT 12/23/24 20:15 IMPRESSION: NO ACUTE FINDINGS AT THE ABDOMEN OR PELVIS ON CONTRAST-ENHANCED CT. Reading Location: [facility] Treatment and Re-Evaluation :: Patient was given IV fluids, morphine, and Zofran. Patient has been on a repeat dose of morphine. Patient was advised of her findings. Patient was given a dose of Bactrim here. Patient was feeling better on reevaluation. Care of the patient was turned over the oncoming physician pending CT scan results. <Dr. Theodore Fishman MD - Last Filed: 12/24/24 04:48> [facility] Lab Data Labs: Laboratory Results - last 24 hr 12/23/24 12/23/24 19:48 19:53 WBC 6.0 RBC 4.82 Hgb 14.2 Hct 42.9 MCV 89.0 MCH 29.5 MCHC 33.1 RDW Std Deviation 41.1 RDW Coeff of [place]ooter 12.6 Plt Count 185 MPV 10.9 Immature Gran % (Auto) 0.200 Neut % (Auto) 56.5 Lymph % (Auto) 34.8 [place] % (Auto) 6.0 Eos % (Auto) 1.3 Baso % (Auto) 1.2 H Absolute Neuts (auto) 3.4 Absolute Lymphs (auto) 2.09 Nucleated RBC % 0 Sodium 141 Potassium 4.0 Chloride 107 Carbon Dioxide 22.8 Anion Gap 11 BUN 17 Creatinine 1.08 Estim Creat Clear Calc 54.40 Est GFR (MDRD) Non-Af 60 BUN/Creatinine Ratio 16.1 Glucose 95 Calcium 9.2 Total Bilirubin 0.34 AST 23 ALT 20 Alkaline Phosphatase 57 Total Protein 7.3 Albumin 4.1 Globulin 3.1 Albumin/Globulin Ratio 1.3 Lipase 53 Urine Color Yellow Urine Clarity Clear Urine pH 6.0 Ur Specific [place] 1.025 Urine Protein 30 H Urine Glucose (UA) Normal Urine Ketones 5 H Urine Occult Blood 25 H Urine Nitrite Negative Urine Bilirubin Negative Urine Urobilinogen Normal Ur Leukocyte Esterase 500 H Urine RBC 5-10 SEEN Urine WBC 25-50 SEEN Ur Squamous Epith Cells 0-5 SEEN Urine Bacteria 1+ Urine Mucus 0 SEEN Radiography Diagnostic Testing: Clinical Impression(s) from Imaging Studies Abdomen/Pelvis CT 12/23/24 20:15 IMPRESSION: NO ACUTE FINDINGS AT THE ABDOMEN OR PELVIS ON CONTRAST-ENHANCED CT. Reading Location: [facility] Treatment and Re-Evaluation Comments:: Patient checked out to me during that shift pending CT results. There were significant delays in getting these results. Patient was in pain in the meantime I tried a GI cocktail, but it really did not help her epigastric pain, I examined her she is tender there, and I reviewed the CT images and the result once it returned, basically negative for nothing acute which I agree with. She appears to have a stomach full of food. I ordered a dose of hydromorphone which really helped her discomfort made her more comfortable. I do not think there is a life-threatening issue here, her labs are negative for cholangitis, pancreatitis, she has already had her gallbladder out and a CT does not show anything acute here, so although the initial treating physician is treating her for urinary tract infection I do not think that is causing her epigastric pain, and I think it would be reasonable to treat her for intraluminal etiologies. She states she has had various GI discomforts in the past that may or may not be irritable bowel syndrome, given her dicyclomine and pantoprazole here as well as prescriptions for those and metoclopramide to use as needed, and she will follow-up with her doctor. Discharge Plan Triage Chief Complaint: Abd Pain ED Provider: Gene Hammond Dx/Rx/DC Orders Clinical Impression: Epigastric abdominal pain, Urinary tract infection Instructions: ED Cystitis Female Adult, ED Epigastric Pain Uncertain Cause Prescriptions: New sulfamethoxazole-trimethoprim 800-160 mg tablet 1 tab PO BID Qty: 6 0RF dicyclomine 20 mg tablet 20 mg PO Q6H PRN PRN (Reason: abdominal discomfort) Qty: 20 0RF pantoprazole 40 mg tablet,delayed release (DR/EC) 40 mg PO DAILY Qty: 30 0RF metoclopramide HCl 10 mg tablet 10 mg PO Q8H PRN (Reason: nausea and vomiting) Qty: 20 0RF No Action citalopram 20 MG tablet 20 mg PO DAILY Primary Care Provider: Rima Sierra Referrals: Rima Sierra MD [Primary Care Provider, Family Practice] - As soon as possible Print Language: [place] Disposition Disposition: Home, Self Care D/C Safety Score for UGIB <Dr. Gene Hammond, DO - Last Filed: 12/24/24 00:59> Assessment Jag-Blatchford Bleeding Score (GBS): Stratifies upper GI bleeding patients who are "low-risk" and candidates for outpatient management. Hemoglobin, BUN, Recent Vital Signs: Hgb 14.2 g/dL (12.0-15.0) 12/23/24 19:53 BUN 17 mg/dL (4-19) 12/23/24 19:53 Pulse Rate 87 Blood Pressure 133/62 Score Interpretation: Score of 0: A GBS of 0 is a “Low Risk” GI bleed, and is highly sensitive (99.6% in a 2007 retrospective study) for predicting which patients did not require any “medical intervention”: blood transfusion, endoscopy, or surgery. This was confirmed in a 2009 Lancet study where patients with a score of 0 were actually discharged and had no GI bleeding mortality at 6 month followup Score above 0: A GBS greater than zero suggests a “High Risk” GI bleed that is likely to require “medical intervention”: transfusion, endoscopy, or surgery. A higher GBS also correlated with a higher likelihood of needing intervention Scores >/= 6 are associated with >50% risk of needing intervention <Dr. Theodore Fishman MD - Last Filed: 12/24/24 04:48> Assessment Hemoglobin, BUN, Recent Vital Signs: Hgb 14.2 g/dL (12.0-15.0) 12/23/24 19:53 BUN 17 mg/dL (4-19) 12/23/24 19:53 Pulse Rate 87 Blood Pressure 133/62 D/C Safety Score for LGIB <Dr. Gene Hammond DO - Last Filed: 12/24/24 00:59> Assessment Assessment Tool: Readmission and adverse event risk in patients with acute lower GI bleeding. Hemoglobin and Recent Vital Signs: Hgb 14.2 g/dL (12.0-15.0) 12/23/24 19:53 Pulse Rate 87 12/24/24 03:00 Blood Pressure 133/62 12/24/24 03:00 Score Interpretation: Probability Percentage of safe discharge (absence of rebleeding, blood transfusion, therapeutic intervention, 28 day readmission, or ) Score of 8 or below: Consider discharge, with appropriate precautions. Score of 9 or above: Discharge NOT recommended. Consider admission with further workup and resuscitation as necessary. <Dr. Theodore Fishman MD - Last Filed: 12/24/24 04:48> Assessment Hemoglobin and Recent Vital Signs: Hgb 14.2 g/dL (12.0-15.0) 12/23/24 19:53 Pulse Rate 87 12/24/24 03:00 Blood Pressure 133/62 12/24/24 03:00
[2024-12-23 20:27] LABS: Mucous, Urine 0 SEEN /hpf (<or=2+)
[2024-12-23 20:32] LABS: Hematocrit 42.9 % (37-47); Hemoglobin 14.2 g/dL (12.0-15.0); Immature Granulocytes Count 0.010 X10^3/uL (0.0-0.0); Mean Corp Hgb Conc 33.1 g/dL (32-36); Mean Corpuscular Volume 89.0 fL (81-99); Mean Platelet Vol. 10.9 fl (6.2-12.0); NRBC Flagged by Analyzer 0 % (0-5); Platelet Count 185 K/mm3 (150-450); RBC Distribution Width CV 12.6 % (11.6-14.6); RBC Distribution Width SD 41.1 fl (35.1-43.9); Red Blood Count 4.82 M/mm3 (4.2-5.4); White Blood Count 6.0 K/mm3 (4.4-11.0)
--- OUTSIDE RECORDS SUMMARY | 2024-12-23 20:32 | XMS RPT_ITS | CCD ---
Author Organization [facility] Care Team Providers Care Remote Broadcast Technician Name Role Phone Mariela WOODS, Dr. Abarca Primary Care Provider [phone] Mariela WOODS, Dr. Abarca Referring Provider Bowen Phillips Attending Provider Jose WOODS, Dr. Jung Attending Provider Rima Sierra Primary Care Unavailable Bowen Phillips Attending Unavailable Rima Sierra Referring Unavailable Rmia Sierra Primary Care Unavailable Erich Garcia Attending Unavailable Rima Sierra Primary Care Unavailable Rima Sierra Referring Unavailable Rima Sierra Attending Unavailable Allergies Allergy Classification Reported Allergen(s) Allergy Type Date of Onset Reaction(s) Facility (3 sources) Azithromycin Drug Allergy 1 Unknown [facility] (4 sources) Meperidine; Translations: [meperidine HCl] Drug Allergy 1 Unknown [facility] (4 sources) Prochlorperazine; Translations: [prochlorperazine maleate] Drug Allergy 1 Unknown [facility] (4 sources) rizatriptan; Translations: [rizatriptan benzoate] Drug Allergy 1 Unknown [facility] (4 sources) prochlorperazine edisylate; Translations: [prochlorperazine edisylate] Allergy to substance 1 Unknown [facility] (1 source) Azithromycin Drug Allergy 5 [facility] Repository Medications Current Medications Medication Drug Class(es) Dates Sig (Normalized) Sig (Original) citalopram 20 mg oral tablet (3 sources) Serotonin Reuptake Inhibitor Start: 03-27-2013 take 1 tablet by mouth once daily Citalopram 20 MG tablet Active 20 mg PO DAILY March 27, 2013 1:00am Completed/Discontinued Medications Medication Drug Class(es) Dates Sig (Normalized) Sig (Original) phentermine hydrochloride 37.5 mg oral tablet (3 sources) Sympathomimetic Amine Anorectic Start: 10-04-2020 End: 07-30-2023 take 1 tablet by mouth once daily Phentermine 37.5 mg tablet Discontinued 37.5 mg PO DAILY October 04, 2020 12:00am July 30, 2023 11:08am Problems Active Problems Problem Classification Problem Date Documented Da te Episodic/Chronic Allergic reactions (2 sources) Contact dermatitis; Translations: [Unspecified contact dermatitis, unspecified cause] 07-30-2023 Episodic Headache; including migraine (3 sources) Migraine; Translations: [Migraine, unspecified, not intractable, without status migrainosus] 01-12-2017 Chronic Headache; including migraine (3 sources) Headache; Translations: [Headache] 03-28-2013 Episodic Nonspecific chest pain (3 sources) Chest pain; Translations: [Chest pain, unspecified] 02-14-2020 Episodic Other injuries and conditions due to external causes (1 source) Unspecified injury of unspecified wrist, hand and finger(s), initial encounter; Translations: [Unspecified injury of unspecified wrist, hand and finger(s), initial encounter] Onset: 08-08-2024 Episodic Past or Other Problems Problem Classification Problem Date Documented Da te Episodic/Chronic Other screening for suspected conditions (not mental disorders or infectious disease) (4 sources) Patient encounter status; Translations: [Encounter for screening for malignant neoplasm of colon] Onset: 08-24-2023 10-11-2020 Episodic Results Test Name Value Interpretation Reference Range Facility Hand Min 3 Viewson Hand Min 3 Views [facility] Imaging Services [address] [place] [address] Hand Min 3 Views MR#: [id number] Acct: [id number] Name: MIRIAM BEAVERS Rep #: [id number] : 1965 F 59 From: Steve Echevarria MD PCP: Dr. Rima Sierra MD Status: DEP AMB Study: Hand Min 3 Views Date of Exam: 08/08/24 Exam# [id number] Ordering Dr: Bowen Fox PROCEDURE: HAND MIN 3 VIEWS 08/08/2024 REASON FOR EXAM: PAIN 4TH AND 5TH MC FOLLOWING SMASHING INJURY TECHNIQUE: HAND MIN 4 VIEWS COMPARISON: None FINDINGS: Bones: No fracture or suspicious osseous lesion Joints: Joint spaces well-preserved Soft tissues: No foreign body or suspicious soft tissue swelling Other: RAD/Hand Min 3 Views IMPRESSION: No fracture or suspicious osseous lesion Reading Location: [id number] CC: Dr. Rima Sierra MD; BRANDIN Grayson Director Of Residence Life: Signed Normal [facility] Urgent Care Visit Reporton 0 08-08-2024 Urgent Care Visit Report [facility] [address], [address] [place] [address] OFFICE VISIT Date of Service: 08/08/24 MR#: [id number] Acct: [id number] Name: MIRIAM BEAVERS Rep #: [id number] : 1965 Provider: BRANDIN Grayson Age/Sex: 59/F Location: [facility] Status: Signed with Addenda ADDENDUM by BRANDIN Grayson on 08/08/24 at 1025 HPI Details: icd 10 codes: R hand injury - S69.91XA R hand extensor tendon strain - S66.31 Assessment and Plan Assessment and Plan Orders: Orders Hand Min 3 Views Today S69.90XA - Unspecified injury of unspecified wrist, hand and finger(s), initial encounter 08/08/24 1025 Date Bowen Fox cc: * Signed Intake Vital Signs 07/30/23 11:07 08/08/24 10:05 Height 5 ft 2 in BP 126/80 H Blood Pressure Location Lt brachial Position Sitting Respiration 15 Pulse 54 L Pulse Source NIBP Temp 98.2 F Temp Source Oral Pulse Oximetry (%) 96 Oxygen Delivery Method room air Intake Visit Reasons: R HAND INJURY Chief Complaint: right hand injury Online Journalist Required: No Is patient in pain?: Yes Allergies azithromycin (From Zithromax) Allergy (Verified 08/08/24 10:05) Unknown meperidine HCl (From Demerol) Allergy (Verified 08/08/24 10:05) Unknown prochlorperazine edisylate (From Compazine) Allergy (Verified 08/08/24 10:05) Unknown prochlorperazine maleate (From Compazine) Allergy (Verified 08/08/24 10:05) Unknown rizatriptan benzoate (From Maxalt) Allergy (Verified 08/08/24 10:05) Unknown Is last menstrual period known: No Post menopausal: Yes Patient : No Have you fallen in the past year?: No Nurse's Note: right hand vs kitchen counter last night. large red area near 3rd/4th metacarpals. states throbbed all night. denies additional injuries. [facility] Medical History Wears glasses Depression Anxiety Alcohol use Back pain Injury of head and neck History of IBS Former smoker Leg cramps History of stress test History of rheumatic fever Surgical History Hx of colonoscopy Hx of hernia repair Hx of tonsillectomy Hx of hysterectomy, total Hx of appendectomy Hx laparoscopic cholecystectomy History of cardiac catheterization Social History Smoking Status: Former smoker HPI HPI Chief Complaint: right hand injury Details: MIRIAM BEAVERS, is a 59 F who presents to the office today for History of Present Illness The patient is a 59-year-old female presenting with a hand injury due to trauma. The injury occurred when she jammed her right hand against the edge of a counter in her kitchen. She reports significant pain, particularly on the palmar side of the hand, affecting her ability to sleep. The patient denies any prior injuries to the hand and has been managing the pain with ibuprofen and ice application. She was able to resist pressure during the physical examination, indicating the extensor tendon is intact, although there is tenderness in the ring finger. X-rays did not reveal any fractures, specifically in the 4th metacarpal bone. Attestation: Documentation on this patient encounter was supported using ambient scribe technology/ voice AI technology. The patient consented to recording for the purpose of documenting the encounter. Provider reviewed content of the generated note prior to signature. Review of Systems - Musculoskeletal: Reports significant pain on the palmar side of the right hand, denies prior injuries to the hand. Physical Exam - Musculoskeletal: Tenderness on the palmar side of the right hand, particularly affecting the ring finger. Ability to resist downward pressure indicates intact extensor tendon function. - Musculoskeletal: No fractures observed on X-ray of the right hand per my review, pending radiologist interpretation at the time of patient discharge. Results - Imaging: X-ray of the right hand shows no fractures, specifically in the 4th metacarpal bone. Assessment and Plan The 59-year-old female presents with a hand injury due to trauma, specifically a possible extensor tendon strain in the right hand. The patient reports significant pain on the palmar side of the hand, particularly affecting the ring finger, but maintains the ability to resist pressure, indicating the tendon is intact. X-ray imaging did not reveal any fractures, and the clinical assessment suggests a strain rather than a tear of the extensor tendon. 1. Hand Injury: Possible Extensor Tendon Strain The patient will undergo shahnaz taping of the affected finger to the adjacent finger and use a splint to maintain extension for a few days. Ibuprofen is recom (more content not included)... Normal [facility] SCRN MAMM (CAD)W/KVNG BILATo n 08-13-2023 SCRN MAMM (CAD)W/KVNG BILAT [facility] Imaging Services [address] [place] [address] [id number] SCRN MAMM (CAD)W/KVNG BILAT MR#: [id number] Acct: [id number] Name: MIRIAM BEAVERS Rep #: [id number] : 1965 F 58 From: Bacilio Aldridge MD PCP: Dr. Rima Sierra MD Status: DEP [facility] Study: SCRN MAMM (CAD)W/VKNG BILAT Date of Exam: 07/01 Exam# [id number] [place]ing [place]: [place] [id number] MAMMOGRAPHY - BILATERAL SCREENING 3-D TOMOSYNTHESIS REASON FOR EXAM: Female, 58 years old. SCREENING PERTINENT HISTORY: No significant family history. TECHNIQUE: 2-D mammograms and 3-D Tomosynthesis of the breast (s) were performed. CAD was performed. COMPARISON: 08/09/2020 FINDINGS: The breast composition is composed of scattered fibroglandular density. Scattered benign calcifications are seen. No dense spiculated masses or suspicious microcalcifications are identified. No architectural distortion is identified. There is no skin thickening or retraction. There has been no significant change since the prior study. BI/SCRN MAMM (CAD)W/KVNG BILAT IMPRESSION: No mammographic signs of malignancy. Routine yearly mammograms recommended. ASSESSMENT CATEGORY: BIRADS Category 1: Negative. A letter regarding these results will be sent to the patient by the facility within 30 days. FOLLOW UP RECOMMENDATION: Yearly follow up mammogram recommended. (A) Approximately 10% of breast cancers are not detected by mammography. A normal mammogram should not delay biopsy of a clinically suspicious abnormality. Electronically Signed: Bacilio Aldridge MD at 16:16 EDT , CC: Dr. Rima Sierra MD Director Of Residence Life: Signed Normal [facility] Erythrocyte sedimentation ra teOrdered By: Dr. Sierra on 05-01-2022 ESR (Bld) [Velocity] 12 mm/h 0-30 [facility] No Panel InformationOrdered By: Dr. Sierra on 05-01-2022 Anti-Nuclear Antibody Screen Negative Negative [facility] Comment on above: Performed at: [place] [id number] Director: Rohan Chauhan PhD, Phone: [phone] Serum cyclic citrullinated p eptide IgG antibody assay (units/volume)Ordered By: Dr. Sierra on 05-01-2022 Cyclic citrullinated peptide IgG Qn 1 units 0-19 [facility] Comment on above: Negative <20 Weak po sitive 20 - 39 Moderate positive 40 - 59 Strong positive >59Performed at: [facility] [address] [place], [place] [id number] Director: Rohan Chauhan PhD, Phone: [phone] Serum or plasma C reactive p rotein measurement (mass/volume)Ordered By: Dr. Sierra on 05-01-2022 CRP [Mass/Vol] 2.91 mg/L 0.0-3.0 [facility] Comment on above: C-Reactive Protein ( CRP) provides useful information for thediagnosis, therapy and monitoring of inflammatory processesand associated diseases. For the evaluation of Relative Riskfor Cardiovascular Disease, a High Sensitivity CRP (HSCRP)should be ordered. [facility] 08-09-2020 [facility] HNO ID: [id number] Author: Mammography Coordinator Service: ? Author Type: Physician Type: Letter Filed: 08/12/2020 11:34 PM Note Text: August 09, 2020 PID: [id number] Miriam SaravananAnna Marie Beavers [address] [place] [address] Dear Ms. Beavers, We are pleased to inform you that the results of your recent breast imaging exam on 08/09/2020 are normal. Early detection of cancer is very important. We also understand recommendations regarding breast cancer screening are controversial. Please discuss with your primary care provider which strategy is best for you and whether a mammogram is right for you. Your imaging studies and report will be kept on file at [facility] as part of your permanent medical record and are available for your continuing care. Thank you for allowing us to help in meeting your health care needs. Sincerely, Dr. Gracia Interpreting Radiologist [facility] (Normal over 40) Normal [facility] RA SCREENING W TOMOon 08-09 RA SCREENING W KVNG * * *Final Report* * * DATE OF EXAM: Aug 09 2020 9:27AM [id number] [id number] - [facility] SCREENING W KVNG / PROCEDURE REASON: Mammogram Bilateral w/ Kvng * * * * Physician Interpretation * * * * RESULT: #[id number] - [facility] SCREENING W KVNG BILATERAL DIGITAL SCREENING MAMMOGRAM TOMOSYNTHESIS WITH CAD: 08/09/2020 HISTORY: Screening Mammogram with KVNG - patient reports NO breast symptoms /priors available for comparison. RESULT: TECHNIQUE: The study was acquired using full field digital technology and interpreted from soft copy. Digital Breast Tomosynthesis (DBT) images were obtained and used to assist in the interpretation of this examination. Current study was also evaluated with a Computer Aided Detection (CAD). Comparison is made to exams dated: 07/14/2017 mammogram - [facility], 06/16/2017 mammogram, and 04/29/2016 mammogram - [facility]. The tissue of both breasts is predominantly fatty. No significant masses, calcifications, or other findings are seen in either breast. There has been no significant interval change. IMPRESSION: NEGATIVE There is no mammographic evidence of malignancy. A 1 year screening mammogram is recommended. Magalie posada/danie:08/09/2020 10:31:17 Senior Marketing Analyst(s): Kristina Ellis RT(R)(M), [facility] letter sent: Normal over 40 Mammogram BI-RADS: 1 Negative Multiple national specialty organizations have released breast cancer screening guidelines for women at average risk for developing breast cancer - guidelines that are based on both evidence and opinion, yet differ on when to start and how often to screen for breast cancer. With representation from Breast Imaging, Internal Medicine, Women's Health, Family Medicine, and Medical/Surgical Oncology, the [facility] has carefully reviewed the data and reached the following consensus: 1) All women should engage in shared decision-making with their providers to decide when to start and how often to screen; 2) All women should have the opportunity to start screening mammography at age 40; 3) For women ages 45-55, we recommend annual screening mammograms; 4) For women ages 55 and over, we support both the transition from an annual to a biennial interval if this aligns more with patient's values and preferences, or continuation with annual screening; 5) All women should discuss with their providers when to stop screening mammograms. Director Of Residence Life: Danie Transcribe Date/Time: Aug 09 2020 9:10A Dictated by: MAGALIE GRACIA MD This examination was interpreted and the report reviewed and electronically signed by: MAGALIE GRACIA MD on Aug 09 2020 10:31AM EST [id number] Normal [facility] OBSOLETEon 06-20-2020 OBSOLETE Refill (FAMPWS) NIMESHMIRIAM ([id number]) 1965 F Date Time Provider Department 06/20/20 GAYATHRI HOWARD During your visit today, we recorded the following information about you: Mayelin Ferrer RN 06/20/2020 2:25 PM Signed Chris at [facility] calls for renewal of Citalopram. Informed that patient last seen in over a year, on 05/29/19 and appointment is needed. He will notify patient to call and schedule appointment. Mayelin Ferrer RN Allergies As of Date: 06/20/2020 Noted Allergy Reaction COMPAZINE (PROCHLORPERAZINE EDISY*07/28/2005 LIPITOR (ATORVASTATIN CALCIUM) 11/02/2016 17 - Myalgia MAXALT (RIZATRIPTAN BENZOATE) 07/28/2005 ZITHROMAX (AZITHROMYCIN) 07/28/2005 Date Reviewed: 05/29/2019 Reviewed by: Padmini ([facility]) VERA Mccullough - Fully Assessed Reason for Visit: Refill Request [94] Prescriptions as of 06/20/2020 Sig: ACETAMINOPHEN-ISOMETHEP TENE-D* 2 capsules by mouth as needed* PROMETHAZINE 25 MG TAB (PHENE* Take 1 tablet by mouth every * CITALOPRAM 20 MG TABLET Take 1 tablet by mouth once d* LORAZEPAM 0.5 MG TABLET Take 1 tablet by mouth once d* KETOROLAC 10 MG TABLET Take 1 tablet by mouth every * ACYCLOVIR 5 % TOPICAL CREAM Apply 1 application to affect* Patient not taking: Reported on 02/24/2019 ACYCLOVIR 5 % TOPICAL OINTMENT Apply 1 application to affect* Patient not taking: Reported on 02/24/2019 NAPROXEN 500 MG TABLET Take 1 tablet by mouth twice * GABAPENTIN 100 MG CAPSULE Take 1 capsule by mouth three* Problem List As Of Date 06/20/2020 Noted Resolved Migraine without aura and without status migrai* Sciatica [M54.30] 03/15/2007 04/27/2016 LUMBAR DISC DISPLACEMENT [M51.26] 05/10/2007 Sprain of lumbar region [S33.5XXA] 06/03/2007 04/21/2016 Sprain of lumbosacral (joint) (ligament) [S33.9*06/03/2007 04/27/2016 Anxiety disorder [F41.9] 06/24/2010 Irritable bowel syndrome [K58.9] 06/24/2010 04/27/2016 Hyperlipidemia LDL goal <130 [E78.5] 04/21/2016 Medication management [Z79.899] 04/21/2016 Statin intolerance [Z78.9] 11/02/2016 Fibromyalgia [M79.7] 02/24/2019 Encounter Status:Closed by MAYELIN FERRER RN on 06/20/20 Normal [facility] Vital Signs Date Time Vital Sign Value Performing Clinician Faci lity 08-08-2024 10:05-0400 Body temperature 98.2 [degF] Dr. Rima Sierra MD Work Phone: [facility] 08-08-2024 10:05-0400 Diastolic blood pressure 80 mm[Hg] Dr. Rima Sierra MD Work Phone: [facility] 08-08-2024 10:05-0400 Heart rate 54 /min Dr. Rima Sierra MD Work Phone: [facility] 08-08-2024 10:05-0400 Respiratory rate 15 /min Dr. Rima Sierra MD Work Phone: [facility] 08-08-2024 10:05-0400 SaO2% (BldA) [Mass fraction] 96 % Dr. Rima Sierra MD Work Phone: [facility] 08-08-2024 10:05-0400 Systolic blood pressure 126 mm[Hg] Dr. Rima Sierra MD Work Phone: [facility] 08-08-2024 09:50-0400 Body height 157.[address] Rima Sierra MD Work Phone: [facility] Encounters Encounter Date Encounter Type Care Provider Facility Start: 08-08-2024 End: 08-08-[address] Erich Garcia MD -[facility] Start: 08-08-2024 End: 08-08-[address] Rima Sierra MD Work Phone: -[facility] Start: 08-13-2023 End: 08-13-2023 ambulatory Rima Sierra Facility:[facility] Start: 05-01-2022 End: 05-01-2022 ambulatory [facility] Work Phone: Start: 05-01-2022 End: 05-01-2022 Patient encounter procedure [facility]-Laboratory, [place] [facility] Procedures Date Procedure Procedure Detail Performing Clinician Start: 08-08-2024 Plain x-ray of hand Dr. Rima Sierar MD Work Phone: Plan of Treatment Date Care Activity Detail Author XR Hand GE 3 Views [facility] Payers Date Payer Category Payer Self-pay [id number] 2023 Unknown [id number] Unknown [id number] Unknown [id number] Unknown [id number] Social History Date Type Detail Facility Start: 10-11-2020 Tobacco smoking status NHIS Unknown if ever smoked [facility] Start: 02-13-2020 None [facility] Start: 02-13-2020 Spouse/ Signif icant Other [facility] Start: 1965 Sex Assigned At Female [facility] Start: 08-08-2024 Tobacco smoking status NHIS Ex-smoker (finding) [facility] Progress note 12-02-2020 Note Date & Type Note Facility 12-02-2020 Note HNO ID: [id number] Author: Jeff Brambila Population Health Navigator Service: ? Author Type: ? Type: Progress Notes Filed: 12/02/2020 3:01 PM Note Text: POPULATION HEALTH NAVIGATION OUTREACH Action/FYI I spoke with patient and she is seeing a physician outside of the [facility] No care everywhere Contact made with patient or family member? YES Pt identified by name and : YES Outreach Outcome/Action Spoke to patient or caregiver: PCP confirmed / updated Patient declined Reason for Outreach Attribution: Provider Off-boarding Payer: No coverage found. Care Gap Reviewed:: Reminder: Reminder note to check Health Maintenance for items below Health Maintenance items due: COVID-19 VACCINE(1) Never done HEPATITIS C SCREENING Never done HIV SCREENING Never done COLORECTAL CANCER SCREENING Never done DTAP,TDAP,TD(2 - Tdap) due on 05/26/2015 SHINGRIX VACCINE(1 of 2) Never done DEPRESSION SCREENING due on 04/27/2017 DIABETES SCREEN due on 04/25/2019 INFLUENZA(1) due on 10/09/2020 Advanced Directives Completed: Have you ever planned for future healthcare decisions with a power of psychiatric nurse, living will, or advance directives? No. Please bring a copy to your next appointment or email to Referrals: N/A Message Sent to Practice: NO Navigation Signature: Jeff Brambila Population Health Navigator December 02, 2020 3:01 PM [facility] Clinical Note 12-02-2020 Note Date & Type Note Facility 12-02-2020 Note Patient Outreach (NE TNAV) MIRIAM BEAVERS ([id number]) 1965 F Date Time Provider Department 12/02/20 JEFF BRAMBILA During your visit today, we recorded the following information about you: Jeff Brambila Population Health Navigator 12/02/2020 3:01 PM Signed POPULATION HEALTH NAVIGATION OUTREACH Action/FYI I spoke with patient and she is seeing a physician outside of the [facility] No care everywhere Contact made with patient or family member? YES Pt identified by name and : YES Outreach Outcome/Action Spoke to patient or caregiver: PCP confirmed / updated Patient declined Reason for Outreach Attribution: Provider Off-boarding Payer: No coverage found. Care Gap Reviewed:: Reminder: Reminder note to check Health Maintenance for items below Health Maintenance items due: COVID-19 VACCINE(1) Never done HEPATITIS C SCREENING Never done HIV SCREENING Never done COLORECTAL CANCER SCREENING Never done DTAP,TDAP,TD(2 - Tdap) due on 05/26/2015 SHINGRIX VACCINE(1 of 2) Never done DEPRESSION SCREENING due on 04/27/2017 DIABETES SCREEN due on 04/25/2019 INFLUENZA(1) due on 10/09/2020 Advanced Directives Completed: Have you ever planned for future healthcare decisions with a power of psychiatric nurse, living will, or advance directives? No. Please bring a copy to your next appointment or email to Referrals: N/A Message Sent to Practice: NO Navigation Signature: Jeff Brambila Population Health Navigator December 02, 2020 3:01 PM Allergies As of Date: 12/02/2020 Noted Allergy Reaction COMPAZINE (PROCHLORPERAZINE EDISY*07/28/2005 LIPITOR (ATORVASTATIN CALCIUM) 11/02/2016 17 - Myalgia MAXALT (RIZATRIPTAN BENZOATE) 07/28/2005 ZITHROMAX (AZITHROMYCIN) 07/28/2005 Date Reviewed: 05/29/2019 Reviewed by: Padmini ([facility]) VERA Mccullough - Fully Assessed Reason for Visit: Population Health Navigation Outreach [3910] Cmt: Offboarding Prescriptions as of 12/02/2020 - mxquhvkmeqknt-rjpopycsdebrlwbhvc-zlaohpde ptene (MIDRIN) 65-100-325 mg per capsule 2 capsules by mouth as needed for migraine headache; may take additional capsule every hour as needed (max 5 in 12 hrs) - promethazine (PHENERGAN) 25 mg tablet Go-Pack Take 1 tablet by mouth every 6 hours as needed for Nausea/Vomiting. - citalopram (CELEXA) 20 mg tablet Take 1 tablet by mouth once daily. - LORazepam (ATIVAN) 0.5 mg Take 1 tablet by mouth once daily as needed (anxiety) for up to 30 days. - ketorolac (TORADOL) 10 mg tablet Take 1 tablet by mouth every 6 hours as needed for Pain. - acyclovir (ZOVIRAX) 5 % crea Apply 1 application to affected area five times daily. - acyclovir (ZOVIRAX) 5 % ointment Apply 1 application to affected area five times daily. - naproxen (NAPROSYN) 500 mg tablet Take 1 tablet by mouth twice daily as needed for Pain. Take with food. - gabapentin (NEURONTIN) 100 mg capsule Take 1 capsule by mouth three times daily as needed for up to 30 days. Problem List As Of Date 12/02/2020 Noted Resolved Migraine without aura and without status migrai* Sciatica [M54.30] 03/15/2007 04/27/2016 LUMBAR DISC DISPLACEMENT [M51.26] 05/10/2007 Sprain of lumbar region [S33.5XXA] 06/03/2007 04/21/2016 Sprain of lumbosacral (joint) (ligament) [S33.9*06/03/2007 04/27/2016 Anxiety disorder [F41.9] 06/24/2010 Irritable bowel syndrome [K58.9] 06/24/2010 04/27/2016 Hyperlipidemia LDL goal <130 [E78.5] 04/21/2016 Medication management [Z79.899] 04/21/2016 Statin intolerance [Z78.9] 11/02/2016 Fibromyalgia [M79.7] 02/24/2019 Encounter Status:Closed by [facility] on 12/02/20 [facility] Progress note 08-09-2020 Note Date & Type Note Facility 08-09-2020 Note HNO ID: [id number] Author: John Paul Zayas Service: ? Author Type: Senior Investigator Type: Progress Notes Filed: 08/09/2020 9:06 AM Note Text: Radiology Service Progress Note PATIENT NAME: Miriam Beavers DATE OF SERVICE: August 09, 2020 TIME: 9:06 AM PATIENT IDENTITY VERIFICATION COMPLETED USING TWO (2) IDENTIFIERS: Name and Date of confirmed by patient verbally. FALL SCREENING: Has the patient had 2 falls in the last year or 1 fall with injury or currently using an Ambulatory Assistive Device (Walker, Cane, Wheelchair, Crutches, etc.)? No PATIENT GENDER DATA: Female. status: : No status: NO. PATIENT RELEVANT IMPLANT DATA REVIEWED: Not Applicable RADIOLOGY DEPARTMENT: Mammography PERIPHERAL IV DATA: Not applicable SIGNED BY: John Paul Zayas August 09, 2020 9:06 AM [facility] Progress note 05-08-2020 Note Date & Type Note Facility 05-08-2020 Note HNO ID: [id number] Author: Becca Bernal Service: ? Author Type: ? Type: Progress Notes Filed: 05/08/2020 3:36 PM Note Text: Spoke with patient states she is not interested in scheduling or doing the IFOBT test at this time Becca Bernal [facility] Progress note 05-07-2020 Note Date & Type Note Facility 05-07-2020 Note HNO ID: [id number] Author: Abdoul Whelan RN Service: ? Author Type: Registered Nurse Type: Progress Notes Filed: 05/08/2020 3:36 PM Note Text: Patient is overdue for screening colonoscopy. Patient is okay for open access. Please offer and schedule. Abdoul Whelan RN [facility] Clinical Note 05-07-2020 Note Date & Type Note Facility 05-07-2020 Note Patient Outreach (FA MPWS) MIRIAM BEAVERS ([id number]) 1965 F Date Time Provider Department 05/07/20 ABDOUL WHELAN) [facility] During your visit today, we recorded the following information about you: Abdoul Whelan RN, RN 05/08/2020 3:36 PM Signed Patient is overdue for screening colonoscopy. Patient is okay for open access. Please offer and schedule. MARTIN Hatfield 05/08/2020 3:36 PM Signed Spoke with patient states she is not interested in scheduling or doing the IFOBT test at this time Becca Bernal Allergies As of Date: 05/07/2020 Noted Allergy Reaction COMPAZINE (PROCHLORPERAZINE EDISY*07/28/2005 LIPITOR (ATORVASTATIN CALCIUM) 11/02/2016 17 - Myalgia MAXALT (RIZATRIPTAN BENZOATE) 07/28/2005 ZITHROMAX (AZITHROMYCIN) 07/28/2005 Date Reviewed: 05/29/2019 Reviewed by: Padmini ([facility]) VERA Mccullough - Fully Assessed Reason for Visit: Outpatient Colonoscopy [482] Prescriptions as of 05/07/2020 Sig: [id number]* 2 capsules by mouth as needed* PROMETHAZINE 25 MG TAB (PHENE* Take 1 tablet by mouth every * CITALOPRAM 20 MG TABLET Take 1 tablet by mouth once d* KETOROLAC 10 MG TABLET Take 1 tablet by mouth every * ACYCLOVIR 5 % TOPICAL CREAM Apply 1 application to affect* Patient not taking: Reported on 02/24/2019 ACYCLOVIR 5 % TOPICAL OINTMENT Apply 1 application to affect* Patient not taking: Reported on 02/24/2019 NAPROXEN 500 MG TABLET Take 1 tablet by mouth twice * Problem List As Of Date 05/07/2020 Noted Resolved Migraine without aura and without status migrai* Sciatica [M54.30] 03/15/2007 04/27/2016 LUMBAR DISC DISPLACEMENT [M51.26] 05/10/2007 Sprain of lumbar region [S33.5XXA] 06/03/2007 04/21/2016 Sprain of lumbosacral (joint) (ligament) [S33.9*06/03/2007 04/27/2016 Anxiety disorder [F41.9] 06/24/2010 Irritable bowel syndrome [K58.9] 06/24/2010 04/27/2016 Hyperlipidemia LDL goal <130 [E78.5] 04/21/2016 Medication management [Z79.899] 04/21/2016 Statin intolerance [Z78.9] 11/02/2016 Fibromyalgia [M79.7] 02/24/2019 Encounter Status:Closed by BECCA BERNAL on 05/08/20 [facility] Evaluation note Note Date & Type Note Facility Evaluation note No assessment information availa [facility] Work Phone: Reason for referral (narrative) Note Date & Type Note Facility Reason for referral (narrative) No reason for referral information available [facility] Work Phone: Summary Purpose Family History No Family History Records FoundNo Family History Records Found Advance Directives No Advanced Directives Records Found Advance Directive Response Recorded Date/ Time Living Will No October 04 12:57pm 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 Estevan Geller III, MD Family Provider Active Dr. Rima Sierra MD Primary Care Provider Active Team Status: Inactive Member Role Status Dates Dr. Rima Sierra MD Primary Care Provider, [facility] Provider Active Team Status: Active Member Role/Relationship Status Dates Dr. Estevan Geller III, MD Family Provider Active Dr. Rima Sierra MD Primary Care Provider Active Team Status: Active Member Role/Relationship Status Dates Dr. Rima Sierra MD Primary Care Provider Active Start: August 08, 2024 Dr. Rima Sierra MD Referring Provider Active Start: August 08, 2024 Bowen Fox PA, PA Attending Provider Active Start: August 08, 2024 Team Status: Inactive Member Role/Relationship Status Dates Dr. Rima Sierra MD Primary Care Provider Active Start: August 08, 2024 End: August 08, 2024 Dr. Erich Garcia MD Attending Provider Active S tart: August 08, 2024 End: August 08, 2024 Team Status: Inactive Member Role/Relationship Status Dates Dr. Rima Sierra MD Primary Care Provider Active Start: August 08, 2024 End: August 08, 2024 Dr. Rima Sierra MD Referring Provider Active Start: August 08, 2024 End: August 08, 2024 Bowen GHOTRA, PA Attending Provider Active Start: August 08, 2024 End: August 08, 2024 Goals (unrecognized section and content) Goals may be documented in a n alternate sectionGoals may be documented in an alternate sectionGoals may be documented in an alternate section FOR RECORDS PERTAINING TO PATIENTS WHO ARE OR HAVE BEEN ENROLLED IN A CHEMICAL DEPENDENCY/SUBSTANCEABUSE PROGRAM, SOME INFORMATION MAY BE OMITTED. This clinical summary was aggregated from multiple sources. Caution should be exercised in using it in the provision of clinical care. This summary normalizes information from multiple sources, and as a consequence, information in this document may materially change the coding, format and clinical context of patient data. In addition, data may be omitted in some cases. CLINICAL DECISIONS SHOULD BE BASED ON THE PRIMARY CLINICAL RECORDS. [employer] provides no warranty or guarantee of the accuracy or completeness of information in this document.
[2024-12-23 20:33] LABS: Color, Urine Yellow (Yellow); Glucose, Dipstick Normal (Normal); Ketone-Dipstick 5 mg/dl (Negative); Leukocyte Esterase-Dipstick 500 /ul (Negative); Nitrite-Dipstick Negative (Negative); Occult Blood-Urine 25 /ul (Negative); Protein-Dipstick 30 mg/dl (Negative); Specific Gravity, Urine 1.025 (1.002-1.030); Urine Bilirubin Dipstick Negative (Negative)
[2024-12-23] MEDS: 0.9% Normal Saline (1000mL) 1,000 ML 999 ML IV (20:46)
[2024-12-23 21:09] LABS: AST(SGOT) 23 U/L (<=31); Alanine Aminotransfer ALT/SGPT 20 U/L (<=34); Albumin, Serum 4.1 g/dL (3.5-5.0); Alkaline Phosphatase 57 U/L (35-104); Anion Gap 11 (5-15); BUN 17 mg/dL (4-19); BUN/Creat Ratio 16.1 RATIO (10-20); Calcium,Total 9.2 mg/dL (7.6-11.0); Carbon Dioxide 22.8 mmol/L (21.0-32.0); Chloride 107 mmol/L (98-108); Estimated Creatinine Clearance 54.40 ml/min (50-250); Globulin 3.1 g/dL (2.2-4.2); Glucose 95 mg/dL (70-99); Lipase 53 U/L (13-75); Potassium 4.0 mmol/L (3.3-5.1)
[2024-12-23 21:22] VITALS: BP 138/74; PULSE 60; RESP 18; O2SAT 96
[2024-12-23 22:20] LABS: Squamous Epithelial Cells - UA 0-5 SEEN /hpf (5-10)
[2024-12-23 22:21] LABS: Red Blood Cells-Urine 5-10 SEEN /hpf (0-5)
[2024-12-23 23:00] VITALS: BP 135/81; PULSE 64; RESP 16
[2024-12-24] MEDS: Smz/Tmp Ds Tablet 1 TABLET PO (00:41)
--- NOTE | 2024-12-24 00:59 | ED.RN ---
Emerita in radiology called to request they contact Radiology to read the Ct . Stated she would call again.
[2024-12-24 01:00] VITALS: RESP 18
[2024-12-24] MEDS: Lidocaine 2% Viscous15 ML UDC 15 ML PO (01:40)
[2024-12-24 03:00] VITALS: BP 133/62; PULSE 87; RESP 16
[2024-12-24 05:00] VITALS: BP 131/60; PULSE 85; RESP 18; TEMP 37; O2SAT 98
== END 2024-12-24 05:01 | disposition home or self-care (01) ==
PROVIDERS: Emergency Provider Emergency Medicine; PCP Family Medicine; Visit Provider Emergency Medicine
DX: N39.0 Urinary tract infection, site not specified (principal); Z90.710 Acquired absence of both cervix and uterus; Z87.891 Personal history of nicotine dependence; R10.13 Epigastric pain; Z90.49 Acquired absence of other specified parts of digestive tract; R11.0 Nausea
CPT/HCPCS: 74177; 80053; 81001; 83690; 85025; 87086; 87088; 96361; 96372; 96374; 96375; 99284; Q9967; A4216; J2405